=== PATIENT | male | born 1950 | race Caucasian/White ===

== ENCOUNTER 2019-05-02 11:12 | Observation (INO) | payer BC, MEDICARE ==
[2019-05-02 12:03] LABS: #Basophils 0.2 thou/uL (0.0-0.2); #Lymphocytes 0.5 thou/uL (1.20-3.40); #Monocytes 0.4 thou/uL (0.11-0.59); #Neutrophils 5.2 thou/uL (1.40-6.50); %Basophils 2.9 % (0.0-1.0); %Eosinophils 0.5 % (0.0-10.0); %Lymphocytes 8.1 % (21.0-51.0); %Neutrophils 82.5 % (42.0-75.0); Hemoglobin 14.1 g/dL (14.0-18.0); Mean Corpuscular Hemoglobin 32.5 pg (27.0-31.0); Mean Corpuscular Volume 95.6 fL (78.0-98.0); Mean Platelet Volume 6.6 fL (7.4-10.4); Platelet Count 176 thou/uL (130-400); RBC Distribution Width 11.5 % (11.5-14.5); Red Blood Cell (RBC) Count 4.36 mill/uL (4.70-6.10); White Blood Cell (WBC) Count 6.3 thou/uL (4.8-10.8)
[2019-05-02] MEDS ORDERED: Aspirin Chewable 81 MG TAB ONE (12:12)
[2019-05-02 12:13] LABS: ALT (SGPT) 16 U/L (8-55); AST (SGOT) 17 U/L (5-34); Albumin 3.8 g/dL (3.4-4.8); Alkaline Phosphatase 60 U/L (40-150); Anion Gap 12 mmol/L (10-20); BUN (Urea Nitrogen) 19 mg/dL (8.4-25.7); Bilirubin, Total 0.6 mg/dL (0.2-1.2); Calc. Creatinine Clearance 0 mL/min (70-130); Carbon Dioxide 26 mmol/L (23-31); Chloride 104 mmol/L (98-107); Estimated GFR-MDRD 69; Globulin 2.9 g/dL (2.4-3.5); Glucose 222 mg/dL (80-115); Potassium 4.2 mmol/L (3.5-5.1); Protein, Total 6.7 g/dL (5.8-8.1); Sodium 138 mmol/L (136-145)
--- NOTE | 2019-05-02 12:42 | CT ---
CT BRAIN WITHOUT CONTRAST: HISTORY: Memory problems. FINDINGS: Comparison is made with the exam of 03/07/2014. No evidence of infarct, hemorrhage, midline shift, or abnormal extraaxial fluid collection is seen. The ventricular size is stable and the basilar cisterns are patent. The bony calvarium is intact. T here is a mucous retention cyst versus polyp in the right maxillary sinus. IMPRESSION: No CT evidence of acute intracranial process. POS: [facility]
[2019-05-02 15:15] LABS: Troponin I Less than 0.010 ng/mL (< 0.028)
[2019-05-02 15:49] VITALS: BMI 23.3
[2019-05-02] MEDS ORDERED: Acetaminophen 325 MG TAB PO PRN (17:37)
[2019-05-02 18:07] LABS: Troponin I Less than 0.010 ng/mL (< 0.028)
--- NOTE | 2019-05-02 21:48 | HP ---
PRIMARY CARE PHYSICIAN: Wilfrid Woods MD CHIEF COMPLAINT: Amnesia. HISTORY OF PRESENT ILLNESS: Mr. Sanabria is a pleasant 68-year-old male who had presented to [facility] after he experienced about 45 minutes of a transient amnesia episode. He states that he had gone to lunch with his at [employer] when he had experienced a timeframe of about 45 minutes where he was not able to recall any events. He denied any headache, blurred vision, dizziness, any chest pain, palpitations, shortness of breath, abdominal pain, nausea, or vomiting. He denied any seizure-like activity. 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 His blood pressure and other vital signs remained stable and unremarkable. His glucose was slightly elevated at 222. However, all other lab work essentially unremarkable. Troponin was found to be less than 0.010. He denied any further drug use and is currently asymptomatic at this time. It was determined at that time the patient be placed in observation on the stroke floor for further monitoring and workup of his symptoms. REVIEW OF SYSTEMS: All other systems reviewed and found to be negative unless mentioned in the HPI. PAST MEDICAL HISTORY: None. PAST SURGICAL HISTORY: None. PSYCHIATRIC HISTORY: None. SOCIAL HISTORY: Denies any tobacco or illicit drug use, however, does drink socially roughly once a month. KNOWN ALLERGIES: No known drug allergies. CURRENT HOME MEDICATIONS: Aspirin 81 mg daily and multivitamin daily. PHYSICAL EXAMINATION: VITAL SIGNS: BP 136/68, pulse 81, respirations 16, temperature 98.3 degrees Fahrenheit, and O2 saturations 98% on room air. GENERAL: The patient is awake, alert, and oriented x3. He is currently lying down in bed and in no acute distress. HEENT: Atraumatic, normocephalic. Pupils are round and reactive to light. Extraocular muscles intact. Moist mucous membranes noted. NECK: Soft and supple. Trachea midline. CARDIOVASCULAR: Positive S1 and S2. Regular rate and rhythm. No murmur auscultated. RESPIRATORY: Clear to auscultation bilaterally. No wheezes, rales, or rhonchi. ABDOMEN: Soft, nontender. Bowel sounds present. MUSCULOSKELETAL: Strength 5+ bilaterally upper and lower extremities. Moves all extremities equal. Pedal and radial pulses palpable 2+ bilaterally. No edema noted. NEUROLOGIC: Cranial nerves 2 through 12 grossly intact. No focal deficits noted. Speech intact and normal. Gait is normal. SKIN: Warm, dry, and intact. No rashes. No ulceration noted. PSYCHIATRIC: Good mood and affect. LABORATORY DATA: WBC 6.3, RBC 4.36, hemoglobin 14.1, platelet 176. Sodium 138, potassium 4.2, anion gap 12, BUN 19, creatinine 1.06, estimated GFR 69, glucose 222. Troponin less than 0.010. DIAGNOSTIC IMAGING: CT brain without contrast showed no CT evidence of acute intracranial process. ASSESSMENT AND PLAN: 1. Transient amnesia, the patient is now asymptomatic at this time. He will be continued on aspirin 81 mg daily. He will undergo transient ischemic attack workup, which includes MRI of brain, carotid ultrasound and an echocardiogram. Neurology Services, Dr. Valencia is also consulted for further evaluation and recommendations. 2. Elevation of glucose at 222, the patient without any history of diabetes at this time. However, we will check an A1c for further monitoring. 3. Deep venous thrombosis and gastrointestinal prophylaxis. 4. Code status, full code. 5. Disposition, the patient will be worked up for his underlying transient amnesia and rule out transient ischemic attack, consult was placed to Dr. Valencia, Neurology Services. The patient will be continued on aspirin and he will likely be discharged home in the next 24 to 48 hours. Job ID: [id number]
[2019-05-03 05:25] LABS: #Basophils 0.1 thou/uL (0.0-0.2); #Eosinphils 0.2 thou/uL (0.0-0.7); #Lymphocytes 1.7 thou/uL (1.20-3.40); #Monocytes 0.7 thou/uL (0.11-0.59); #Neutrophils 4.1 thou/uL (1.40-6.50); %Eosinophils 3.3 % (0.0-10.0); %Lymphocytes 25.1 % (21.0-51.0); %Monocytes 9.7 % (0.0-10.0); %Neutrophils 60.9 % (42.0-75.0); Hemoglobin 13.8 g/dL (14.0-18.0); Mean Corpuscular HGB CONC 33.8 g/dL (32.0-36.0); Mean Corpuscular Hemoglobin 33.1 pg (27.0-31.0); Mean Platelet Volume 7.4 fL (7.4-10.4); Platelet Count 168 thou/uL (130-400); RBC Distribution Width 11.3 % (11.5-14.5); Red Blood Cell (RBC) Count 4.15 mill/uL (4.70-6.10); White Blood Cell (WBC) Count 6.7 thou/uL (4.8-10.8)
[2019-05-03 05:33] LABS: Hemoglobin A1c 5.2 % (4.0-6.0)
[2019-05-03 05:55] LABS: Anion Gap 9 mmol/L (10-20); BUN (Urea Nitrogen) 18 mg/dL (8.4-25.7); Calc. Creatinine Clearance 91 mL/min (70-130); Calcium 8.9 mg/dL (7.8-10.44); Carbon Dioxide 28 mmol/L (23-31); Cardiac Risk 3.5 (Less than 4.5); Chloride 106 mmol/L (98-107); Cholesterol 164 mg/dl (< 200 Desired); Estimated GFR-MDRD 86; Glucose 94 mg/dL (80-115); HDL Cholesterol 47 mg/dL (>60 Neg Risk); LDL Cholesterol, Calculated 106 mg/dL; Sodium 139 mmol/L (136-145); Triglycerides 57 mg/dL (Less than 150)
[2019-05-03 08:09] VITALS: TEMP 98.1
[2019-05-03] MEDS ORDERED: Aspirin 81 mg Enteric Coated Tablet PO SCH (09:00)
--- NOTE | 2019-05-03 09:06 | PDOC.PN ---
- Subjective Encounter Start Date: 05/03/19 Encounter Start Time: 09:01 Subjective: Patient states he feels well and at his baseline. Denies any complaints at -: this time. States he has never had an episode like he did yesterday, and -: has not had any recurring episode of amnesia since then. Denies any DAILLO. No dizziness. Denies any chest pain or sob. No n/v. Tolerating a regular appetite. He has been under much stress recently due to retiring from his job at the [employer]. He is having a hard time during this transition and having to clear out his work. 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 - Objective Resuscitation Status - Order Detail: 05/02/19 17:37 Resuscitation Status Routine Co-Sign Provider: Resuscitation Status: FULL: Full Resuscitation MAR Reviewed: Yes Vital Signs & Weight: Vital Signs (12 hours) Temp Pulse Resp BP BP Pulse Ox 05/03/19 08:00 98.1 F 70 16 121/70 97 05/03/19 03:02 97.8 F 70 20 127/59 L 97 05/02/19 23:21 97.6 F 70 20 131/63 95 Weight Weight 177 lb I&O: 05/02/19 05/03/19 05/04/19 06:59 06:59 06:59 Intake Total 780 Balance 780 Result Diagrams: 05/03/19 04:31 05/03/19 04:31 Phys Exam - Physical Examination Constitutional: NAD HEENT: PERRLA, sclera anicteric, oral pharynx no lesions Neck: no nodes, no JVD, supple, full ROM Respiratory: no wheezing, no rales, no rhonchi, clear to auscultation bilateral Cardiovascular: RRR Gastrointestinal: soft, non-tender, no distention, positive bowel sounds Musculoskeletal: no edema, pulses present Neurological: non-focal, normal sensation, moves all 4 limbs Power 5/5 in all limbs. Slow to recall some information when asked questions. Psychiatric: normal affect, A&O x 3 Skin: no rash, normal turgor Dx/Plan (1) Amnesia Code(s): R41.3 - OTHER AMNESIA Status: Acute Plan: No further episodes. Denies any complaints at present. Rule out intracranial abnormality, i.e. stroke, mass. Awaiting MRI brain and Carotid US. Started on Lipitor. Per patient the last thing he remembers was ordering lunch, then came to when half way through his meal. Hypoglycemic episode is a possibility as well. Consult placed to Dr. Valencia (Neuro) (2) Dyslipidemia Code(s): E78.5 - HYPERLIPIDEMIA, UNSPECIFIED Status: Acute - Plan Patient evaluated and discussed with Dr. Duvall. -: MRI is -ve for mass/infarct/bleed, usg carotids show no sig stenosis -: has evaluated and cleared pt for discharge -: is ambulating and eating prior to discharge -: Counselled to f/u with PCP in 1 week. * . I have seen and examined patient, agree with above documentation by .
--- NOTE | 2019-05-03 11:52 | MRI ---
MRI BRAIN WITHOUT CONTRAST: HISTORY: TIA, memory problems. FINDINGS: Correlation is made with the previous day's CT scan. No restricted diffusion is seen. There are a few foci of T2 prolongation in the periventricular whit e matter consistent with mild chronic small-vessel ischemic disease. No evidence of infarct, hemorrh age, midline shift, or abnormal extraaxial fluid collections is seen. The ventricular size is approp riate and the basilar cisterns are patent. There is mild mucosal disease in the paranasal sinuses. There is fluid in the left mastoid air cells. A polypoid versus mucous retention cyst is seen in the right maxillary sinus. IMPRESSION: No evidence of acute intracranial process. POS: [facility]
--- NOTE | 2019-05-03 11:54 | ULT ---
BILATERAL CAROTID DUPLEX ULTRASOUND: HISTORY: TIA. TECHNIQUE: Mckeon scale ultrasound with color flow and spectral Doppler imaging of the extracranial carotid artery systems was performed bilaterally. FINDINGS: There is a small amount of plaque formation. The peak systolic velocity in the right ICA measures 55 cm/s with an end-diastolic velocity of 18 cm/ s and a systolic ratio of 0.62. The peak systolic velocity in the left ICA measures 47 cm/s with an end-diastolic velocity of 10 cm/s and a systolic ratio of 0.54. Flow in both vertebral arteries remains antegrade. IMPRESSION: No evidence of hemodynamically significant stenosis. POS: [facility]
[2019-05-03 12:00] VITALS: BP 121/66
--- NOTE | 2019-05-03 12:13 | CON ---
DATE OF CONSULTATION: 05/03/2019 CONSULTING PHYSICIAN: Hospitalist Service. IMPRESSION: Transient global amnesia versus transient ischemic attack. PLAN: 1. Continue aspirin. 2. Add a low dose of statin. 3. MRI of the brain. 4. Echocardiogram. 5. Carotid ultrasound. HISTORY OF PRESENT ILLNESS: Mr. Sanabria is a 68-year-old gentleman, who was at his usual restaurant, having breakfast. His noted that he did not seem to be acting appropriately. He seemed to have trouble deciding on what he wanted to eat. He recalls that he was sitting at the table and his bagel was nearly gone. He does not recall eating it. They decided to come into the emergency room. His notes that as events unfolded in the ER, he was not retaining the information and forgetting that things had happened. He never developed any type of headache, nausea, vomiting, vertigo, chest pain, shortness of breath, lateralized weakness or numbness. He has never had anything like this before. He does not have any vascular risk factors. 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 PAST MEDICAL HISTORY: Otherwise, negative. ALLERGIES: NONE. SOCIAL HISTORY: No tobacco or drug use. FAMILY HISTORY: Noncontributory. MEDICATION LIST: Included aspirin daily. REVIEW OF SYSTEMS: Ten system review of systems is otherwise negative. PHYSICAL EXAMINATION: VITAL SIGNS: Blood pressure 121/70, pulse 70, respirations 16, and temperature 98.1. HEENT: Pupils equal and reactive. Conjunctivae are clear. Oropharynx clear. Cranium, normocephalic and atraumatic. NECK: Supple. No lymphadenopathy. EXTREMITIES: No cyanosis or edema. NEUROLOGIC: He is alert and appropriate. His speech is fluent and clear. Cranial nerves were intact. Motor exam showed equal strength. Sensation was intact to touch. He could stand and walk independently. No abnormal movements were seen. LABORATORY STUDIES: CBC and serum chemistries were unremarkable. His cholesterol ratio was 3.5. SUMMARY: This is a 68-year-old man, who had transient amnesia without any other associated symptoms. He has no history of migraine. He has no vascular risk factors. I agree with the workup and care. Job ID: [id number]
[2019-05-03] MEDS ORDERED: Atorvastatin Calcium 20 MG TAB PO SCH (21:00)
== END 2019-05-03 12:55 | disposition home or self-care (01) ==
LOC: SCSER 11:12 → 2SE 15:23
PROVIDERS: ADMIT Internal Medicine; ATTEND Internal Medicine
DX: G45.4 Transient global amnesia (principal); R73.09 Other abnormal glucose; E78.5 Hyperlipidemia, unspecified; Z79.82 Long term (current) use of aspirin; Z79.899 Other long term (current) drug therapy
CPT/HCPCS: 36415; 70450; 70551; 80048; 80053; 80061; 83036; 84443; 84484; 85025; 93005; 93880; G0378

== ENCOUNTER 2020-01-04 12:27 | Emergency (ER) | payer BC, MEDICARE ==
--- NOTE | 2020-01-04 13:22 | CT ---
Exam: Head CT without contrast HISTORY: Altered mental status COMPARISON: 05/02/2019 FINDINGS: Hemorrhage: No intraparenchymal hemorrhage or extra-axial hematoma. Brain parenchyma: Cortical hudson-white matter differentiation is preserved. No mass effect or midline shift. Basilar cisterns are patent.Brain volume, age-appropriate. Ventricular system: No hydrocephalus. Stable asymmetric prominence of the right temporal horn. Calvarium: Intact. Sinuses and mastoid air cells: Adequate aeration. IMPRESSION: No acute intracranial process.
[2020-01-04 13:34] LABS: #Basophils 0.1 thou/uL (0.0-0.2); #Eosinphils 0.1 thou/uL (0.0-0.7); #Lymphocytes 0.9 thou/uL (1.20-3.40); #Monocytes 0.4 thou/uL (0.11-0.59); #Neutrophils 3.7 thou/uL (1.40-6.50); %Basophils 1.6 % (0.0-1.0); %Eosinophils 1.6 % (0.0-10.0); %Monocytes 7.8 % (0.0-10.0); Mean Corpuscular HGB CONC 34.8 g/dL (32.0-36.0); Mean Corpuscular Hemoglobin 34.6 pg (27.0-31.0); Mean Corpuscular Volume 99.4 fL (78.0-98.0); Mean Platelet Volume 7.3 fL (7.4-10.4); Platelet Count 191 thou/uL (130-400); RBC Distribution Width 11.5 % (11.5-14.5); Red Blood Cell (RBC) Count 4.35 mill/uL (4.70-6.10); White Blood Cell (WBC) Count 5.2 thou/uL (4.8-10.8)
[2020-01-04 13:37] LABS: Bilirubin Negative (Negative); Blood, Urine Negative (Negative); Clarity Clear (Clear); Glucose, Urine (Dipstick) Normal (Negative); Leukocyte Negative Leu/uL (Negative); Nitrite Negative (Negative); Protein, Urine (Dipstick) Negative (Neg-Trace); Urobilinogen Normal mg/dL (Less than 2)
[2020-01-04 14:00] LABS: ALT (SGPT) 15 U/L (8-55); AST (SGOT) 19 U/L (5-34); Albumin 4.3 g/dL (3.4-4.8); Alkaline Phosphatase 71 U/L (40-110); Anion Gap 12 mmol/L (10-20); BUN (Urea Nitrogen) 20 mg/dL (8.4-25.7); Bilirubin, Total 0.7 mg/dL (0.2-1.2); CK (CPK) 178 U/L (30-200); Calc. Creatinine Clearance 0 mL/min (70-130); Calcium 9.1 mg/dL (7.8-10.44); Carbon Dioxide 27 mmol/L (23-31); Chloride 104 mmol/L (98-107); Estimated GFR-MDRD 75; Globulin 2.8 g/dL (2.4-3.5); Glucose 92 mg/dL (80-115); Lipase 24 U/L (8-78); Protein, Total 7.1 g/dL (5.8-8.1); Sodium 139 mmol/L (136-145)
== END 2020-01-04 14:00 | disposition home or self-care (01) ==
LOC: ERS 12:27
DX: R41.3 Other amnesia (principal)
CPT/HCPCS: 36415; 70450; 80053; 81003; 82140; 82550; 83690; 84443; 84484; 85025; 93005

== ENCOUNTER 2020-08-04 07:24 | Outpatient (CLI) | payer MEDICARE, BC ==
--- NOTE | 2020-08-04 09:36 | PET ---
PET Scan Dementia HISTORY: Mild cognitive impairment, so stated COMPARISON: None. CORRELATION: CT scan of brain dated 01/04/2020 and MRI of the brain dated 05/03/2019 RADIOPHARMACEUTICAL: 7.5 mCi [id number] injected intravenously FINDINGS: No abnormal areas of tracer localization are seen. No hypometabolism is noted in the temporoparietal regions to suggest Alzheimer's dementia. IMPRESSION: Normal exam.
== END 2020-08-04 07:25 | disposition home or self-care (01) ==
LOC: PET 07:24
PROVIDERS: ATTEND Psychiatry & Neurology Neurology
DX: G31.84 Mild cognitive impairment of uncertain or unknown etiology (principal)
CPT/HCPCS: 78803; A9552

== ENCOUNTER 2021-01-23 19:00 | Outpatient (CLI) | payer MEDICARE, BC | END 2021-01-23 19:01 | disposition home or self-care (01) | LOC: SLEEPLAB 19:00 | PROVIDERS: ATTEND Internal Medicine | DX: G47.33 Obstructive sleep apnea (adult) (pediatric) (principal); R41.82 Altered mental status, unspecified; G47.10 Hypersomnia, unspecified; R06.83 Snoring; G47.00 Insomnia, unspecified; G47.31 Primary central sleep apnea | CPT/HCPCS: 95810 ==

== ENCOUNTER 2021-01-31 19:30 | Outpatient (CLI) | payer MEDICARE, BC | END 2021-01-31 19:31 | disposition home or self-care (01) | LOC: SLEEPLAB 19:30 | PROVIDERS: ATTEND Internal Medicine | DX: G47.33 Obstructive sleep apnea (adult) (pediatric) (principal); R41.82 Altered mental status, unspecified; G47.10 Hypersomnia, unspecified; R06.83 Snoring; G47.31 Primary central sleep apnea; E66.9 Obesity, unspecified; Z68.24 Body mass index [BMI] 24.0-24.9, adult | CPT/HCPCS: 95811 ==

== ENCOUNTER 2021-03-10 19:30 | Outpatient (CLI) | payer MEDICARE, BC | END 2021-03-10 19:31 | disposition home or self-care (01) | LOC: SLEEPLAB 19:30 | PROVIDERS: ATTEND Internal Medicine | DX: G47.33 Obstructive sleep apnea (adult) (pediatric) (principal); R56.9 Unspecified convulsions; R41.82 Altered mental status, unspecified; G47.10 Hypersomnia, unspecified; G47.31 Primary central sleep apnea | CPT/HCPCS: 95811 ==

== ENCOUNTER 2022-04-25 13:57 | Outpatient (CLI) | payer MEDICARE, BC | END 2022-04-25 13:58 | disposition home or self-care (01) | LOC: BICRAD 13:57 | PROVIDERS: ATTEND Internal Medicine Gastroenterology | DX: K59.00 Constipation, unspecified (principal) | CPT/HCPCS: 74018 ==